=== PATIENT | male | born 1955 | race Caucasian/White ===

== ENCOUNTER → 2016-05-03 | Outpatient (REF) | payer MEDICARE ==
[~2016-05-03] MED LIST: ACID1CAP PO; ASPI1TAB PO; ATOR1TAB21 PO; COLA100C PO; DILT180C PO; DOXY100T PO; INSULANT SC; INVO300T PO; LISI2.5T3 PO; METO25TAB PO; NICO21PAT TD; PERCOCET PO; ZYVO100T PO
== END ==
LOC: M LAB REF 13:03
PROVIDERS: ATTEND Podiatrist
DX: E11.51 Type 2 diabetes mellitus with diabetic peripheral angiopathy without gangrene (principal); E11.42 Type 2 diabetes mellitus with diabetic polyneuropathy; L97.512 Non-pressure chronic ulcer of other part of right foot with fat layer exposed; L97.522 Non-pressure chronic ulcer of other part of left foot with fat layer exposed

== ENCOUNTER → 2016-09-05 | Day surgery (SDC) | payer MEDICARE ==
[~2016-09-05] VITALS: Ht 175.3 cm; Wt 102.1 kg
[~2016-09-05] MED LIST changes: +BACITRACIN PWD 50,000 UNITS VIAL As Ordered ONE; +BUPIVACAINE HCL 0.5% 30 ML VIAL As Ordered ONE; -COLA100C PO; +COLA100C3 PO; +LIDOCAINE 2% INJ 100 MG/5 ML SDV (FOR ANES.) As Ordered ONE; +LIDOCAINE 2% MDV 20 ML VIAL As Ordered ONE; +LR 1,000 ML IV SCH; +METO25TA74 PO; +MIDAZOLAM INJ 2 MG/2 ML VIAL (J2250) As Ordered ONE; +NEOSPORIN GU IRRIG 20 ML VIAL As Ordered ONE; +ONDANSETRON 4MG/2ML VIAL (J2405) As Ordered ONE; +PHENYLephrine HCL 500 MCG/5 ML (100MCG/ML) SYRINGE (J2370) As Ordered ONE; +PROPOFOL 500 MG/50 ML VIAL As Ordered ONE; +REGR0.01 TOP; +SILV-4 TOP; +dexameTHASONE 4 MG/ML 1ML VIAL (J1100) As Ordered ONE; +ePHEDrine SULFATE 25 MG/5 ML(5MG/ML) SYRINGE As Ordered ONE; +fentaNYL 100 MCG/2 ML INJECTION (J3010) As Ordered ONE
[2016-09-05 12:40] VITALS: BP 143/82
--- NOTE | 2016-09-05 14:07 | REP ---
REASON: Postop. PRIORS: None. There has been surgical resection of the 1st digit and distal aspect of the 1st metatarsal seen on the previous exam of 08/04/2015 status quo. There is K-wire fixation of the 2nd digit into the 2nd metatarsal with surgical resection of the head of the 2nd metatarsal. There is associated soft tissue swelling. Signed by Jacob Bernal DO 09/05/2016 03:34 P
--- NOTE | 2016-09-06 11:13 | RO ---
DATE OF PROCEDURE: 09/05/2016 PREPROCEDURE DIAGNOSES: Rigid hammertoe deformity 2nd toe right foot. Dislocated 2nd metatarsophalangeal joint, right foot. Ulceration submetatarsal to right foot. POSTPROCEDURE DIAGNOSES: Rigid hammertoe deformity 2nd toe right foot. Dislocated 2nd metatarsophalangeal joint, right foot. Ulceration submetatarsal to right foot. PROCEDURE: 1. Proximal interphalangeal joint fusion, 2nd toe with external wire fixation. 2. Partial 2nd metatarsal head resection, right foot. SURGEON: Dr. Edward Thomas. HOSPITAL CHIEF EXECUTIVE OFFICER: None. ANESTHESIA: Local monitored anesthesia care (MAC) HEMOSTASIS: Ankle pneumatic tourniquet at 250 mmHg for 32 minutes. HARDWARE UTILIZED: 0.062 K-wire. DESCRIPTION OF PROCEDURE: On 09/05/2016 this 60-year-old white male was taken from his hospital room to the operating room and placed on the operating table in the supine position. Following the induction of IV sedation, local and regional anesthesia, the right lower extremity was prepped and draped in the usual aseptic manner. The ulcer on the planar surface was isolated from the foot with Tegaderm and attention was directed to the dorsal surface of the second toe where an incision was made over the proximal interphalangeal joint. The incision was carried down to the level of the extensor tendon where a Z-plasty tendon lengthening was performed. Medial and lateral collateral ligaments were then sharply dissected free from the end of the proximal phalanx and utilizing a power saw an osteotomy was performed to the level of the anatomical neck of the proximal phalanx from dorsal to planar, medial to lateral through and through. This was extirpated from the wound. Cartilage on the base of the middle phalanx was then osteotomized from dorsal to planar and extubated from the wound. The wound was flushed with copious amounts of dilute bacitracin, neomycin and polymyxin B solution. Utilizing a metatarsal elevator, the 2nd metatarsal first has it soft tissue contractors released and then the following procedure was performed. 2ND METATARSAL HEAD RESECTION, RIGHT FOOT: The head of the metatarsal was visualized and an osteotomy was performed just proximal to the articular cartilage from dorsal to planar through and through. This was extirpated from the wound. The wound was flushed with copious amounts of dilute bacitracin, neomycin and polymyxin B solution. A K-wire was then driven through the middle and distal phalanxes and then retrograded to the proximal phalanx and into the 2nd metatarsal. The wire was then bent and a protective cap was placed on the end of the K-wire. The wound was again flushed with copious amounts of dilute bacitracin, neomycin and polymyxin B solution and attention was directed towards closure where the extensor tendon was coapted and maintained with #4-0 Monocryl on a simple interrupted type fashion. Subcutaneous tissues were coapted and maintained with #4-0 Prolene in a simple interrupted type fashion. Skin incision was coapted and maintained #4-0 nylon in a simple interrupted and horizontal type fashion. Attention was directed towards bandaging where a sterile compressive bandage applied consisting of Adaptic, 4 x 4s, 4 x 4 fluffs plus Itz, Kerlix and Coban. The ankle pneumatic tourniquet was rapidly deflated and instantaneous capillary filling time was noted through digits 1-5 of the patient's right foot. The patient, having apparently tolerated the procedure well, was taken from the operating room to the recovery room, vital signs stable, and the patient afebrile for further monitoring by the anesthesia department. All surgical specimens removed during the operative procedure were sent to pathology for gross and microscopic examination. Postoperative instructions will be given upon discharge.
== END | disposition home or self-care (01) ==
LOC: M SDC 08:29
PROVIDERS: ATTEND Podiatrist
DX: M20.41 Other hammer toe(s) (acquired), right foot (principal); S93.124A Dislocation of metatarsophalangeal joint of right lesser toe(s), initial encounter; M79.671 Pain in right foot; M86.171 Other acute osteomyelitis, right ankle and foot; E11.51 Type 2 diabetes mellitus with diabetic peripheral angiopathy without gangrene; E11.42 Type 2 diabetes mellitus with diabetic polyneuropathy; Z79.4 Long term (current) use of insulin; I10 Essential (primary) hypertension; F32.9 Major depressive disorder, single episode, unspecified; Z79.899 Other long term (current) drug therapy; J44.9 Chronic obstructive pulmonary disease, unspecified; F17.210 Nicotine dependence, cigarettes, uncomplicated
CPT/HCPCS: 28285; 28308; 73630; 88300; J0690; J2250; J2370; J2405; J3010

== ENCOUNTER → 2016-11-28 | Outpatient (REF) | payer MEDICARE ==
[~2016-11-28] MED LIST changes: -BACITRACIN PWD 50,000 UNITS VIAL As Ordered ONE; +BECA1GEL TOP; -BUPIVACAINE HCL 0.5% 30 ML VIAL As Ordered ONE; -COLA100C3 PO; +COLA100C5 PO; -LIDOCAINE 2% INJ 100 MG/5 ML SDV (FOR ANES.) As Ordered ONE; -LIDOCAINE 2% MDV 20 ML VIAL As Ordered ONE; -LR 1,000 ML IV SCH; +METO1TAB32 PO; -METO25TA74 PO; -MIDAZOLAM INJ 2 MG/2 ML VIAL (J2250) As Ordered ONE; -NEOSPORIN GU IRRIG 20 ML VIAL As Ordered ONE; -ONDANSETRON 4MG/2ML VIAL (J2405) As Ordered ONE; -PHENYLephrine HCL 500 MCG/5 ML (100MCG/ML) SYRINGE (J2370) As Ordered ONE; -PROPOFOL 500 MG/50 ML VIAL As Ordered ONE; -REGR0.01 TOP; -dexameTHASONE 4 MG/ML 1ML VIAL (J1100) As Ordered ONE; -ePHEDrine SULFATE 25 MG/5 ML(5MG/ML) SYRINGE As Ordered ONE; -fentaNYL 100 MCG/2 ML INJECTION (J3010) As Ordered ONE
== END ==
LOC: M LAB REF 14:30
PROVIDERS: ATTEND Podiatrist
DX: L97.512 Non-pressure chronic ulcer of other part of right foot with fat layer exposed (principal)

== ENCOUNTER → 2017-05-08 | Outpatient (REF) | payer MEDICARE, MEDICAID | LOC: M LAB REF 17:03 | DX: L97.522 Non-pressure chronic ulcer of other part of left foot with fat layer exposed (principal) | CPT/HCPCS: 87186 ==

== ENCOUNTER 2017-07-25 08:02 | Day surgery (SDC) | payer MEDICARE ==
[~2017-07-25 08:02] MED LIST changes: -ACID1CAP PO; -ASPI1TAB PO; -ATOR1TAB21 PO; -BECA1GEL TOP; -COLA100C5 PO; -DILT180C PO; -DOXY100T PO; -INSULANT SC; -INVO300T PO; -LISI2.5T3 PO; -METO1TAB32 PO; -METO25TAB PO; -NICO21PAT TD; +OFLOXACIN 0.3 % (OCUFLOX) OPTH SOL 5ML OS; -PERCOCET PO; +PHENYLEPHRINE 2.5% OPHTH SOL 2ML OS; -SILV-4 TOP; -ZYVO100T PO
[2017-07-25] MEDS: PROPARACAINE 0.5% OPHTH SOL 15ML OS ×2 (09:17)
[2017-07-25] MEDS: TROPICAMIDE 1% OPHTH SOLN 2ML OS ×2 (09:17)
[2017-07-25 09:27] LABS: BEDSIDE GLUCOSE 123 MG/DL (80-115)
[2017-07-25] MEDS ORDERED: fentaNYL 100 MCG/2 ML INJECTION (J3010) As Ordered ×2 (09:55)
[2017-07-25] MEDS ORDERED: MIDAZOLAM INJ 2 MG/2 ML VIAL (J2250) As Ordered ×2 (09:55)
[2017-07-25] MEDS: POVIDONE-IODINE 5% OPHTH PREP SOL 30ML As Ordered ×2 (10:01)
[2017-07-25] MEDS: DUOVISC (0.50ML VISCOAT/0.55ML PROVISC) OPHTH KIT As Ordered ×4 (10:01→10:02)
[2017-07-25] MEDS: LIDOCAINE 0.75%/EPINEPHRINE 0.025% IN BSS 1ML SYR INTRACAMERAL (OR ONLY) As Ordered (10:02)
[2017-07-25] MEDS: BALANCED SALT IRRIGATION SOLUTION 500ML BAG (FOR OR EYE MACHINE) As Ordered ×2 (10:02)
[2017-07-25] MEDS: CEFUROXIME 1MG/0.1ML INTRACAMERAL INJ As Ordered ×2 (10:02)
== END 2017-07-25 11:00 | disposition home or self-care (01) ==
LOC: M SDC 08:02
DX: H25.12 Age-related nuclear cataract, left eye (principal); I25.10 Atherosclerotic heart disease of native coronary artery without angina pectoris; E78.5 Hyperlipidemia, unspecified; I10 Essential (primary) hypertension; J44.9 Chronic obstructive pulmonary disease, unspecified; E11.9 Type 2 diabetes mellitus without complications; F32.9 Major depressive disorder, single episode, unspecified; Z95.1 Presence of aortocoronary bypass graft; Z95.0 Presence of cardiac pacemaker; Z79.82 Long term (current) use of aspirin; Z79.4 Long term (current) use of insulin; Z79.899 Other long term (current) drug therapy
CPT/HCPCS: 66984

== ENCOUNTER 2017-11-14 08:45 | Day surgery (SDC) | payer MEDICARE ==
[2017-11-14 09:53] LABS: BEDSIDE GLUCOSE 114 MG/DL (80-115)
[2017-11-14] MEDS: PROPARACAINE 0.5% OPHTH SOL 15ML OD (10:00)
[2017-11-14] MEDS: PHENYLEPHRINE 2.5% OPHTH SOL 2ML OD (10:01)
[2017-11-14] MEDS: TROPICAMIDE 1% OPHTH SOLN 2ML OD (10:01)
[2017-11-14] MEDS: OFLOXACIN 0.3 % (OCUFLOX) OPTH SOL 5ML OD (10:01)
[2017-11-14] MEDS ORDERED: MIDAZOLAM INJ 2 MG/2 ML VIAL (J2250) As Ordered (10:26)
[2017-11-14] MEDS ORDERED: ONDANSETRON 4MG/2ML VIAL (J2405) As Ordered (10:27)
[2017-11-14] MEDS ORDERED: fentaNYL 100 MCG/2 ML INJECTION (J3010) As Ordered (10:27)
[2017-11-14] MEDS: BALANCED SALT IRRIGATION SOLUTION 500ML BAG (FOR OR EYE MACHINE) As Ordered (11:19)
[2017-11-14] MEDS: POVIDONE-IODINE 5% OPHTH PREP SOL 30ML As Ordered (11:19)
[2017-11-14] MEDS: CEFUROXIME 1MG/0.1ML INTRACAMERAL INJ As Ordered ×2 (11:20)
[2017-11-14] MEDS: LIDOCAINE 0.75%/EPINEPHRINE 0.025% IN BSS 1ML SYR INTRACAMERAL (OR ONLY) As Ordered (11:20)
[2017-11-14] MEDS: DUOVISC (0.50ML VISCOAT/0.55ML PROVISC) OPHTH KIT As Ordered (11:20)
== END 2017-11-14 12:15 | disposition home or self-care (01) ==
LOC: M SDC 08:45
DX: H25.11 Age-related nuclear cataract, right eye (principal); I25.10 Atherosclerotic heart disease of native coronary artery without angina pectoris; E11.9 Type 2 diabetes mellitus without complications; J44.9 Chronic obstructive pulmonary disease, unspecified; Z79.82 Long term (current) use of aspirin; Z79.899 Other long term (current) drug therapy; K44.9 Diaphragmatic hernia without obstruction or gangrene; K21.9 Gastro-esophageal reflux disease without esophagitis; F32.9 Major depressive disorder, single episode, unspecified; F17.210 Nicotine dependence, cigarettes, uncomplicated; Z79.4 Long term (current) use of insulin; Z95.0 Presence of cardiac pacemaker
CPT/HCPCS: 66984

== ENCOUNTER → 2018-02-27 | Outpatient (REF) | payer MEDICARE | LOC: M LAB REF 11:53 | DX: L03.031 Cellulitis of right toe (principal) | CPT/HCPCS: 87070 ==

== ENCOUNTER → 2018-03-25 | Outpatient (REF) | payer MEDICARE ==
[~2018-03-25] MED LIST changes: +ACID1CAP PO; +ASPI1TAB PO; +ATOR1TAB21 PO; +BECA1GEL TOP; +CART180C3 PO; +COLA100C5 PO; +DILT180C43 PO; +DOXY100T PO; +INSULANT SC; +INVO300T PO; +LISI2.5T5 PO; +METO1TAB32 PO; +METO25TAB PO; +NICO21PAT TD; -OFLOXACIN 0.3 % (OCUFLOX) OPTH SOL 5ML OS; +PERCOCET PO; -PHENYLEPHRINE 2.5% OPHTH SOL 2ML OS; +SILV-4 TOP; +ZYVO1TAB PO
== END ==
LOC: M LAB REF 17:57
PROVIDERS: ATTEND Podiatrist
DX: L97.522 Non-pressure chronic ulcer of other part of left foot with fat layer exposed (principal)

== ENCOUNTER → 2018-10-28 | Outpatient (CLI) | payer MEDICARE ==
[~2018-10-28] MED LIST changes: -ASPI1TAB PO; +ASPI81TA26 PO; +LISI-1046 PO; -LISI2.5T5 PO; +METO1TAB63 PO; -METO25TAB PO; +NICO21DI3 TD; -NICO21PAT TD
--- NOTE | 2018-10-28 10:12 | REP ---
Duplex extremity venous ultrasound: Lower extremity. History: Rule out DVT. Findings: The deep veins are anechoic and fully compressible from the groin to the popliteal fossa in the right lower extremity. Color flow imaging is homogeneous. Spectral Doppler interrogation demonstrates intact respiratory variation in flow and normal manual augmentation of flow. There is no evidence of deep vein thrombosis. There is an enlarged lymph node in the right groin measuring 2.0 x 3.9 x 1.1 cm. Impression: Negative right lower extremity duplex venous ultrasound. No evidence of deep vein thrombosis. There is a enlarged inguinal lymph node in the right groin. Electronically Signed by Danny Rivera MD 10/28/2018 10:04 A
== END ==
LOC: M RAD 09:14
PROVIDERS: ATTEND Podiatrist
DX: R59.0 Localized enlarged lymph nodes (principal)

== ENCOUNTER 2019-08-26 09:37 | Inpatient (IN) | payer MEDICARE ==
[~2019-08-26] VITALS: Ht 175.3 cm; Wt 114.6 kg
[~2019-08-26 09:37] MED LIST changes: -LISI-1046 PO; +LISI2.5T2 PO
[2019-08-26] MEDS ORDERED: GLUCAGON INJ 1MG VIAL SC PRN (09:45)
[2019-08-26] MEDS ORDERED: GLUCOSE 4GM CHEW TABLET PO PRN (09:45)
[2019-08-26] MEDS ORDERED: DEXTROSE 50% 50 ML SYRINGE IV PRN (09:45)
[2019-08-26] MEDS ORDERED: ACETAMINOPHEN TAB 650MG DOSE (2X325MG) PO PRN (09:45)
[2019-08-26 10:00] VITALS: BP 152/70
[2019-08-26] MEDS ORDERED: ROSU20TA5 PO (10:27)
[2019-08-26] MEDS ORDERED: POTA10TA67 PO (10:27)
[2019-08-26] MEDS ORDERED: CLOP75TA2 PO (10:27)
[2019-08-26] MEDS ORDERED: ACET500T15 PO (10:27)
[2019-08-26] MEDS ORDERED: SILV50CR TOP (10:27)
[2019-08-26] MEDS ORDERED: NITR4TASL SL (10:27)
[2019-08-26] MEDS ORDERED: FURO80TA2 PO (10:27)
[2019-08-26 11:17] LABS: HEMATOCRIT 37.1 % (42.0-52.0); HEMOGLOBIN 12.2 g/dl (13.5-17.5); MEAN CORPUSCULAR HEMOGLOBIN 28.4 pg (27.0-33.0); MEAN CORPUSCULAR HGB CONC 32.9 g/dl (32.0-36.5); MEAN CORPUSCULAR VOLUME 86.5 fl (80.0-96.0); PLATELET COUNT, AUTOMATED 290 10^3/uL (150-450); RED BLOOD COUNT 4.29 10^6/uL (4.30-6.10); WHITE BLOOD COUNT 18.4 10^3/uL (4.0-10.0)
[2019-08-26 11:43] LABS: ALBUMIN 2.1 GM/DL (3.2-5.2); BILIRUBIN,TOTAL 0.6 MG/DL (0.2-1.0); CALCIUM LEVEL 7.8 MG/DL (8.8-10.2); CREATININE FOR GFR 1.51 MG/DL (0.70-1.30); GLOMERULAR FILTRATION RATE 50.1 (>49); TOTAL PROTEIN 5.7 GM/DL (6.4-8.2)
[2019-08-26] MEDS: HumaLOG INSULIN (NovoLOG) PER UNIT SC SCH ×3 (11:51→21:00)
[2019-08-26] MEDS: ENOXAPARIN 40MG/0.4ML SYRINGE (J1650 PER 10MG) SC SCH (12:57)
[2019-08-26 14:00] VITALS: BP 151/72
[2019-08-26] MEDS ORDERED: VANCOMYCIN HCL 1,000 MG, VIAL MATE ADAPTER 1 EACH in D5W 250 ML IV ONE ×2 (15:00→16:00)
[2019-08-26] MEDS ORDERED: VANCOMYCIN HCL 1,000 MG, VIAL MATE ADAPTER 1 EACH in D5W 250 ML IV SCH ×6 (15:00)
[2019-08-26] MEDS ORDERED: ACETAMINOPHEN 500 MG TAB PO PRN (17:45)
[2019-08-26] MEDS ORDERED: NITROGLYCERIN 0.4 MG SUBL TABLET SL PRN (17:45)
--- NOTE | 2019-08-26 17:53 | HPEPDOC ---
[facility] Medical History & Physical Date of Admission Aug 26, 2019 Date of Service: Aug 26, 2019 Attending Physician: JACOBY ODONNELL MD History and Physical CHIEF COMPLAINT: Worsening L 5th metatarsal gangrenous wound HISTORY OF PRESENT ILLNESS: 63-year-old M patient with underlying medical history of diabetes, coronary artery disease, dyslipidemia, hypertension who has a history of tachybrady syndrome with pacemaker and chronic diabetic foot ulcer who was sent over from Dr. Thomas's office for a worsening infected left 5th metatarsal gangrenous wound, while reporting a recent fever at home to 101.2 yesterday. He reports that he presented to Dr. Thomas's office for care of the wound, where his previously much smaller wound was found to have significant purulent drainage and grown in size and was saturating the dressing and foul smelling. Subsequently, the patient was sent in for surgery to be done this afternoon. The patient currently denies any chills, chest pain, pressure or discomfort, nausea or vomiting. He reports that the fever he had yesterday is the only one he recalls and has not had repeated fevers since taking acetaminophen yesterday. PAST MEDICAL HISTORY: Diabetes. Heart disease. Dyslipidemia. Hypertension. Prior history of diabetic foot ulcers c/b osteomyelitis PAST SURGICAL HISTORY: Pacemaker insertion. Cardiac stent. Facial bone reconstruction. R diabetic foot ulcer surgeries SOCIAL HISTORY: The patient smokes one to two packs per day since age 14. Rare alcohol consumption No illicit drugs ALLERGIES: No known medication allergies. REVIEW OF SYSTEMS: Ten-point review of systems is negative, except for those mentioned in the history of the present illness. PHYSICAL EXAMINATION: VITAL SIGNS: HDS, afebrile, see below for details GENERAL: Patient alert and oriented times three, in no acute distress. HEENT: Normocephalic, atraumatic. PULMONARY: Bilaterally clear to auscultation. CARDIAC: Regular rate and rhythm. Normal S1, S2. ABDOMEN: Obese, soft, nontender, nondistended. Normoactive sounds EXTREMITIES: Diminished sensation bilateral lower extremities. L foot in soaked dressing with brownish purulent material draining, malodorous. No edema LABORATORY: ordering now. Was a direct admit ASSESSMENT AND PLAN: 63-year-old M with an underlying medical history of diabetes, coronary artery disease, dyslipidemia, hypertension being admitted surgical management and antibiotics for an extensively worsening L 5th metatarsal gangrenous diabetic wound. Plan: 1. L 5th metatarsal gangrenous diabetic wound. -Podiatry consulted; Dr. Thomas is planning to take the patient to the operating room this afternoon. -Placed on empiric vancomycin - Followup cultures. Final antibiotic regimen depends on cultures 2. Coronary artery disease, hypertension. -Continue aspirin, statin, plavix -smoke cessation counseling. -Will continue to monitor. 3. Tachybrady syndrome. The patient has a pacemaker. -Continue Cardizem. Will monitor. 4. Diabetes with diabetic neuropathy and diabetic foot ulcer. -Continue long acting insulin -SSI -hypoglycemia protocol -FSBG AC/HS -consistent carb diet after surgery, currently NPO 5. Dyslipidemia. Continue statin. 6. Deep vein thrombosis (DVT) prophylaxis: lovenox DISPOSITION PLANNING: Pending OR and clinical improvement. Medsurg. PT/OT Vital Signs Vital Signs Date Time Temp Pulse Resp B/P (MAP) Pulse Ox O2 Delivery O2 Flow Rate FiO2 08/26/19 14:00 98.7 80 17 151/72 (98) 98 Room Air Laboratory Data Labs 24H Laboratory Tests 2 08/26/19 10:28: Nucleated Red Blood Cells % (auto) 0.0, Anion Gap 7L, Glomerular Filtration Rate 50.1, Calcium Level 7.8L, Total Bilirubin 0.6, Aspartate Amino Transf (AST/SGOT) 48H, Alanine Aminotransferase (ALT/SGPT) 75, Alkaline Phosphatase 109, Total Protein 5.7L, Albumin 2.1L, Albumin/Globulin Ratio 0.6 08/26/19 11:00: Coronavirus (COVID-19)(PCR) NEGATIVE, Methicillin-Resist S.aureus DNA PCR NOT DETECTED 08/26/19 11:36: Bedside Glucose (Misc Panel) 157H 08/26/19 16:39: Bedside Glucose (Misc Panel) 133H CBC/BMP Laboratory Tests 08/26/19 10:28 Microbiology Microbiology 08/26/19 Blood Culture, Received Pending 08/26/19 Blood Culture, Received Pending Home Medications Scheduled Clopidogrel Bisulfate (Clopidogrel) 75 Mg Tablet, 75 MG PO QHS Diltiazem HCl (Cartia Xt) 180 Mg Cap, 180 MG PO QHS Furosemide (Furosemide) 80 Mg Tablet, 80 MG PO BID Insulin Glargine (Lantus) 1 Units/0.01 Ml Susp, 40 UNITS SC BID Lisinopril (Lisinopril) 2.5 Mg Tab, 2.5 MG PO QHS Potassium Chloride (Potassium Chloride) 10 Meq Tab.er.prt, 10 MEQ PO BID Rosuvastatin Calcium (Rosuvastatin Calcium) 20 Mg Tablet, 20 MG PO QHS Silver Sulfadiazine (Ssd) 50 Gm Cream..g., 1 APLCT TOP QHS APPLY TO RIGHT LEG Scheduled PRN Acetaminophen (Acetaminophen) 500 Mg Tablet, 1,000 MG PO Q6H PRN for PAIN / FEVER Nitroglycerin (Nitrostat) 0.4 Mg Tab.subl, 0.4 MG SL Q5MP PRN for CHEST PAIN Allergies Coded Allergies: No Known Allergies (Unverified , 11/14/17) A-FIB/CHADSVASC A-FIB History Current/History of A-Fib/PAF?: No Current PO Anticoag Therapy: No Age/Risk Factor Scoring CHADSVASC: CHADSVASC Response (Comments) Value Age Risk Factor Age < 65 years old 0 Gender Risk Factor Male 0 Hx of CHF Yes 1 Hx of HTN Yes 1 Hx of Stroke/TIA/or VTE No 0 Hx of Diabetes Yes 1 Hx of Vascular Disease Yes 1 Total 4 Treatment Treatment ordered: NONE Reason Anticoagulant not given: Not indicated/[id number] JACOBY ODONNELL MD Aug 26, 2019 17:53
[2019-08-26] MEDS ORDERED: LIDOCAINE PRES-FREE 2% 10ML AMP As Ordered ONE (18:11)
[2019-08-26] MEDS ORDERED: BUPIVACAINE HCL 0.5% 10ML VIAL As Ordered ONE ×3 (18:11→19:11)
[2019-08-26] MEDS ORDERED: dexameTHASONE 4 MG/ML 1ML VIAL (J1100 PER 1MG) As Ordered ONE (18:11)
[2019-08-26] MEDS ORDERED: ROPIvacaine 0.5% 30ML INJECTION (J2795 PER 1MG) As Ordered ONE (18:11)
[2019-08-26] MEDS ORDERED: NEOSPORIN GU IRRIG 20 ML VIAL As Ordered ONE (18:12)
[2019-08-26] MEDS ORDERED: BACITRACIN PWD 50,000 UNITS VIAL As Ordered ONE (18:12)
--- NOTE | 2019-08-26 18:55 | ECGEPIP ---
[facility] Test Date: 2019-08-26 Pat Name: JORGE ORO Department: Room: [place] [address] Gender: Male Intermission Coordinator: VALENTINE : 1955 Requested By: Colby Greene Order Number: [id number] Reading MD: David Ledesma Measurements Intervals [place] Rate: 92 P: 57 WI: 233 QRS: -73 QRSD: 169 T: 88 QT: 383 QTc: 476 Interpretive Statements Ventricular-paced rhythm Electronically Signed on 08-26-2019 18:55:23 EDT by David Ledesma
[2019-08-26] MEDS ORDERED: propofoL 200 MG/20 ML VIAL As Ordered ONE (19:07)
[2019-08-26] MEDS ORDERED: fentaNYL 100 MCG/2 ML INJECTION (J3010) As Ordered ONE (19:07)
[2019-08-26] MEDS ORDERED: MIDAZOLAM INJ 2MG/2ML VIAL (J2250 PER 1MG) As Ordered ONE (19:07)
[2019-08-26] MEDS ORDERED: VANCOMYCIN 1000MG/20ML VIAL As Ordered ONE (19:17)
[2019-08-26] MEDS ORDERED: PERCOCET 5MG/325MG TAB PO PRN ×2 (21:00)
[2019-08-26] MEDS: SILVER SULFADIAZINE 1% CR 50 GM JAR TOP SCH (21:00)
[2019-08-26 21:30] VITALS: BP 149/73
[2019-08-26 22:00] VITALS: BP 151/74
[2019-08-26 22:30] VITALS: BP 148/74
[2019-08-26] MEDS: POTASSIUM CHLORIDE 10 MEQ SR TABLET PO SCH (23:14)
[2019-08-26] MEDS: LISINOPRIL *2.5 MG* TAB PO SCH (23:15)
[2019-08-26] MEDS: FUROSEMIDE 80 MG TAB PO SCH (23:15)
[2019-08-26] MEDS: CLOPIDOGREL 75 MG TAB PO SCH (23:16)
[2019-08-26] MEDS: diltiaZEM **CD** 180 MG CAP PO SCH (23:16)
[2019-08-26] MEDS: ROSUVASTATIN 10 MG TAB (CRESTOR) PO SCH (23:18)
[2019-08-26] MEDS: LEVEMIR (INSULIN DETEMIR) 1 UNITS/0.01ML SC SCH (23:19)
[2019-08-26 23:30] VITALS: BP 144/74
[2019-08-27] VITALS (7 sets, daily range): BP systolic 139–161; BP diastolic 69–81
[2019-08-27] MEDS ORDERED: VANCOMYCIN HCL 750 MG, VIAL MATE ADAPTER 1 EACH in D5W 250 ML IV SCH (05:00)
[2019-08-27] MEDS ORDERED: VANCOMYCIN HCL 500 MG in D5W MINI-BAG PLUS 100 ML IV SCH (06:00)
[2019-08-27 07:19] LABS: HEMATOCRIT 34.6 % (42.0-52.0); HEMOGLOBIN 11.3 g/dl (13.5-17.5); MEAN CORPUSCULAR HEMOGLOBIN 28.1 pg (27.0-33.0); MEAN CORPUSCULAR HGB CONC 32.7 g/dl (32.0-36.5); MEAN CORPUSCULAR VOLUME 86.1 fl (80.0-96.0); PLATELET COUNT, AUTOMATED 268 10^3/uL (150-450); RED BLOOD COUNT 4.02 10^6/uL (4.30-6.10); WHITE BLOOD COUNT 13.6 10^3/uL (4.0-10.0)
[2019-08-27 07:45] LABS: BLOOD UREA NITROGEN 33 MG/DL (7-18); CALCIUM LEVEL 7.4 MG/DL (8.8-10.2); CARBON DIOXIDE LEVEL 33 MEQ/L (21-32); CHLORIDE LEVEL 95 MEQ/L (98-107); CREATININE FOR GFR 1.25 MG/DL (0.70-1.30); GLOMERULAR FILTRATION RATE > 60.0 (>49); GLUCOSE, FASTING 310 MG/DL (70-100); POTASSIUM SERUM 3.9 MEQ/L (3.5-5.1); SODIUM LEVEL 134 MEQ/L (136-145)
--- NOTE | 2019-08-27 08:27 | REP ---
REASON: Postop evaluation. There has been surgical excision of the 5th digit with the surgical site at the proximal diaphysis of the 5th metatarsal. The surgical margin is smooth. There is a bandage overlying the site. Electronically Signed by Jacob Bernal DO 08/27/2019 10:51 A
[2019-08-27] MEDS: ENOXAPARIN 40MG/0.4ML SYRINGE (J1650 PER 10MG) SC SCH (08:29)
[2019-08-27] MEDS: HumaLOG INSULIN (NovoLOG) PER UNIT SC SCH ×4 (08:34→20:58)
[2019-08-27] MEDS: LEVEMIR (INSULIN DETEMIR) 1 UNITS/0.01ML SC SCH ×2 (08:34→22:02)
[2019-08-27] MEDS: POTASSIUM CHLORIDE 10 MEQ SR TABLET PO SCH ×2 (08:35→22:01)
[2019-08-27] MEDS: FUROSEMIDE 80 MG TAB PO SCH ×2 (08:35→17:17)
[2019-08-27] MEDS: GENTAMICIN SULFATE 0.1% OINT 15 GM TOP SCH ×3 (12:28→22:02)
[2019-08-27] MEDS: VANCOMYCIN HCL 1,000 MG, VIAL MATE ADAPTER 1 EACH in D5W 250 ML IV SCH ×2 (14:13→22:00)
--- NOTE | 2019-08-27 15:09 | IPNPDOC ---
Text Note Date of Service The patient was seen on 08/27/19. NOTE SUBJECTIVE: -Doing ok this morning, no complaints postop, pain appears to be well controlled PHYSICAL EXAMINATION: VITAL SIGNS: see belwo GENERAL: Patient alert and oriented times three, in no acute distress. HEENT: Normocephalic, atraumatic. PULMONARY: Bilaterally clear to auscultation. CARDIAC: Regular rate and rhythm. Normal S1, S2. ABDOMEN: Obese, soft, nontender, nondistended. Normoactive sounds EXTREMITIES: Diminished sensation bilateral lower extremities. L foot with dressing c/d/i. RLE also with dressing. No edema LABORATORY: WBC 13.6 hgb 11.3 platelets 268 na 134 K 3.9 cr 1.25 covid-19 negative MRSA negative ASSESSMENT AND PLAN: 63-year-old M with an underlying medical history of diabetes, coronary artery disease, dyslipidemia, hypertension being admitted surgical management and antibiotics for an extensively worsening L 5th metatarsal gangrenous diabetic ulcer now s/p debridement and amputation of L 5th ray, thus far cultures growing GPCs in pairs. Plan: 1. L 5th metatarsal gangrenous diabetic ulcer: -Podiatry onboard, Dr. Thomas debrided and amputated L fifth ray on 08/25 -continue empiric vancomycin -Follow up cultures, currently GPCs in pairs. Final antibiotic regimen depends on cultures 2. BREANA: likely prerenal, improving after hydration -monitor 3. Coronary artery disease recently had stents placed 2 weeks prior -Continue aspirin, statin, plavix -Will continue to monitor. 4. Tachybrady syndrome. The patient has a pacemaker. -Continue Cardizem. Will monitor. 5. Diabetes with diabetic neuropathy and diabetic foot ulcer. -Continue long acting insulin -SSI -hypoglycemia protocol -FSBG AC/HS -consistent carb diet 6. Dyslipidemia. Continue statin. 7. Deep vein thrombosis (DVT) prophylaxis: lovenox DISPOSITION PLANNING: Pending OR and clinical improvement. Medsurg. PT/OT VS,Fishbone, I+O VS, Fishbone, I+O Laboratory Tests 08/26/19 10:28 08/27/19 06:13 Vital Signs Date Time Temp Pulse Resp B/P (MAP) Pulse Ox O2 Delivery O2 Flow Rate FiO2 08/27/19 06:00 97.8 70 18 140/77 (98) 100 Nasal Cannula 2.0 I&O- Last 24 Hours up to 6 AM 08/27/19 05:59 Intake Total 1400 ml Output Total 20 ml Balance 1380 ml JACOBY ODONNELL MD Aug 27, 2019 09:28
--- NOTE | 2019-08-27 16:31 | IPN ---
DATE OF VISIT: 08/27/2019 CHIEF COMPLAINT: The patient is seen at bedside for evaluation status post fascia layer resection secondary to necrotizing fasciitis. The patient states his fever broke last night and he feels good today. Denied shortness of breath or chest pain. Bandages intact with no breakthrough bleeding. The patient's temperature this morning is 97.8, pulse 70, respiration 18, blood pressure is 140/77. His pulse oximetry is 100 with nasal cannula at 2 liters per minute. White count has decreased to 13.6. C-reactive protein is 10.6. Bandage was removed today with the packing removed. There is granulation tissue base forming at the surgical site. There was no purulence expressed with compression of the foot. Erythema noted dorsally on the foot has significantly resolved. The patient's gram stain and culture is presently pending. Orders written to clean the wound with Vashe, let stand for 10-15 minutes, then apply gentamicin cream and a dressing. The patient's antibiotics will be cultured according to his culture and sensitivity. He is presently on vancomycin.
[2019-08-27] MEDS: SILVER SULFADIAZINE 1% CR 50 GM JAR TOP SCH (21:00)
[2019-08-27] MEDS: ROSUVASTATIN 10 MG TAB (CRESTOR) PO SCH (22:01)
[2019-08-27] MEDS: LISINOPRIL *2.5 MG* TAB PO SCH (22:01)
[2019-08-27] MEDS: CLOPIDOGREL 75 MG TAB PO SCH (22:02)
[2019-08-27] MEDS: diltiaZEM **CD** 180 MG CAP PO SCH (22:04)
[2019-08-28 02:00] VITALS: BP 149/68
[2019-08-28 06:00] VITALS: BP 148/72
[2019-08-28 06:00] LABS: HEMATOCRIT 36.8 % (42.0-52.0); HEMOGLOBIN 12.5 g/dl (13.5-17.5); MEAN CORPUSCULAR HEMOGLOBIN 28.6 pg (27.0-33.0); MEAN CORPUSCULAR VOLUME 84.2 fl (80.0-96.0); PLATELET COUNT, AUTOMATED 284 10^3/uL (150-450); RED BLOOD COUNT 4.37 10^6/uL (4.30-6.10); WHITE BLOOD COUNT 11.4 10^3/uL (4.0-10.0)
[2019-08-28 06:12] LABS: BLOOD UREA NITROGEN 29 MG/DL (7-18); C REACTIVE PROTEIN QUANTITATIV 8.21 MG/DL (0.00-0.30); CALCIUM LEVEL 7.9 MG/DL (8.8-10.2); CARBON DIOXIDE LEVEL 34 MEQ/L (21-32); CHLORIDE LEVEL 99 MEQ/L (98-107); CREATININE FOR GFR 1.07 MG/DL (0.70-1.30); GLOMERULAR FILTRATION RATE > 60.0 (>49); GLUCOSE, FASTING 64 MG/DL (70-100); POTASSIUM SERUM 3.5 MEQ/L (3.5-5.1); SODIUM LEVEL 137 MEQ/L (136-145)
[2019-08-28] MEDS: VANCOMYCIN HCL 1,000 MG, VIAL MATE ADAPTER 1 EACH in D5W 250 ML IV SCH ×3 (06:48→21:33)
[2019-08-28] MEDS: HumaLOG INSULIN (NovoLOG) PER UNIT SC SCH ×4 (07:23→21:00)
[2019-08-28 10:00] VITALS: BP 142/74
[2019-08-28] MEDS: FUROSEMIDE 80 MG TAB PO SCH ×2 (10:19→17:45)
[2019-08-28] MEDS: ENOXAPARIN 40MG/0.4ML SYRINGE (J1650 PER 10MG) SC SCH (10:19)
[2019-08-28] MEDS: POTASSIUM CHLORIDE 10 MEQ SR TABLET PO SCH ×2 (10:19→21:35)
[2019-08-28] MEDS: GENTAMICIN SULFATE 0.1% OINT 15 GM TOP SCH (10:20)
[2019-08-28] MEDS: LEVEMIR (INSULIN DETEMIR) 1 UNITS/0.01ML SC SCH ×2 (10:21→21:33)
--- NOTE | 2019-08-28 10:44 | IPNPDOC ---
Text Note Date of Service The patient was seen on 08/28/19. NOTE SUBJECTIVE: -Doing ok this morning, no fevers over the past 24h -Pain is well controlled PHYSICAL EXAMINATION: VITAL SIGNS: see below. HDS, afebrile GENERAL: Patient alert and oriented times three, in no acute distress. HEENT: Normocephalic, atraumatic. PULMONARY: Bilaterally clear to auscultation. CARDIAC: Regular rate and rhythm. Normal S1, S2. ABDOMEN: Obese, soft, nontender, nondistended. Normoactive sounds EXTREMITIES: Diminished sensation bilateral lower extremities. L foot with dressing c/d/i. RLE also with dressing. No edema LABORATORY: WBC 11.4 hgb 12.5 platelets 284 K 3.5 cr 1.07 covid-19 negative MRSA negative ASSESSMENT AND PLAN: 63-year-old M with an underlying medical history of diabetes, coronary artery disease, dyslipidemia, hypertension being admitted surgical management and antibiotics for an extensively worsening L 5th metatarsal gangrenous diabetic ulcer now s/p debridement and amputation of L 5th ray, with pending would cultures on empiric vancomycin. Plan: 1. L 5th metatarsal gangrenous diabetic ulcer: -Podiatry onboard, Dr. Thomas debrided and amputated L fifth ray on 08/25 -continue empiric vancomycin -Follow up cultures, currently GPCs in pairs. Final antibiotic regimen depends on cultures 2. BREANA: likely prerenal, improving after hydration -monitor 3. Coronary artery disease recently had stents placed 2 weeks prior -Continue aspirin, statin, plavix -Will continue to monitor. 4. Tachybrady syndrome. The patient has a pacemaker. -Continue Cardizem. Will monitor. 5. Diabetes with diabetic neuropathy and diabetic foot ulcer. -Continue long acting insulin -SSI -hypoglycemia protocol -FSBG AC/HS -consistent carb diet 6. Dyslipidemia. Continue statin. 7. Deep vein thrombosis (DVT) prophylaxis: lovenox 8. Hypokalemia: on daily repletion -monitor DISPOSITION PLANNING: Pending clinical improvement. Medsurg. PT/OT VS,Fishbone, I+O VS, Fishbone, I+O Laboratory Tests 08/28/19 05:28 Vital Signs Date Time Temp Pulse Resp B/P (MAP) Pulse Ox O2 Delivery O2 Flow Rate FiO2 08/28/19 06:00 98.7 70 18 148/72 (97) 95 Room Air 08/27/19 18:00 2.0 I&O- Last 24 Hours up to 6 AM 08/28/19 05:59 Intake Total 2497 ml Output Total 2950 ml Balance -453 ml JACOBY ODONNELL MD Aug 28, 2019 07:56
--- NOTE | 2019-08-28 14:02 | PHACANCOPD ---
PHARMACY VANCOMYCIN DOSING Pt Demographics Demographics Patient Age:63 , Weight:120.400 , Gender: male Adjusted Body Weight Date: 08/28/19, Adjusted Body Weight: Kg Events Past 24 Hours Events Past 24 Hours: NO: Dialysis, Diuretic Therapy, Change in CrCl, Fever, Elevation in WBC, Pending Diagnostics, Pending Procedures, Other Vancomycin Vancomycin Load Y/N: Yes Load Dose Date Time Vancomycin Load Dose: Date: Time: Vancomycin Dose Date: 08/28/19. Current Vancomycin Dose: [1G IV Q8H] Intermittent Dosing?: No Labs Labs Item Value Date Time White Blood Count 18.4 10^3/uL H 08/26/19 1028 White Blood Count 13.6 10^3/uL H 08/27/19 0613 White Blood Count 11.4 10^3/uL H 08/28/19 0528 Creatinine 1.51 MG/DL H 08/26/19 1028 Creatinine 1.25 MG/DL 08/27/19 0613 Creatinine 1.07 MG/DL 08/28/19 0528 Random Vancomycin Level 12.8 UG/ML 08/27/19 1255 Vancomycin Level Trough 18.6 UG/ML 08/28/19 1303 Micro Microbiology 08/26/19 Blood Culture - Preliminary, Resulted No Growth after 48 hours. All Specime... 08/26/19 Blood Culture - Preliminary, Resulted No Growth after 48 hours. All Specime... 08/26/19 Gram Stain - Final, Resulted 08/26/19 Wound Culture, Resulted Pending 08/26/19 Anaerobic Culture, Resulted Pending Creatinine Clearance Date:08/28/19. Creatinine Clearance: [1.07ML/MIN]. Assessment and Plan Maintaining Current Dose?: Yes Reason for dose change: No Dose Change Pharmacist Note Pharmacist Note Date: 08/28/19. Pharmacist note: Pt trough returned from lab @18.6mcg/ml. We will continue 1g vancomycin iv every 8 hours. We will continue to monitor and adjust the dose as needed. BENNY NEVAREZ PHARMACY Aug 28, 2019 14:02
--- NOTE | 2019-08-28 16:36 | IPN ---
DATE OF VISIT: 08/28/2019 at 10:37 a.m. CHIEF COMPLAINT: The patient is seen at bedside for evaluation of wound on his left foot. The patient states he feels well. No shortness of breath or chest pain. He denies chills. The patient's vital signs 98.7, pulse 70, respiration 18, blood pressure is 148/72. Room air the patient's pulse oximetry is 95. Laboratory studies were reviewed. The patient's C-reactive protein has decreased to 8.21. His WBC is 11.4, decreased from 18.4 on admission. His mycobacteriology results reveals final gram stain of gram positive cocci in pairs. His aerobic and anaerobic cultures are pending. Evaluation of his wound reveals a wound down the lateral aspect of his left foot in the area of the 5th metatarsophalangeal joint measuring 6.7 cm from distal to proximal, 3.4 cm from dorsal to plantar, and 1 cm in depth. It is down to bone, muscle, and tendon. However, there is no active purulent discharge. Erythema on the dorsal aspect of the foot has been resolving. ASSESSMENT: Stage IV wound after debridement of necrotizing fasciitis. PLAN: The patient will be switched to a wound vacuum-assisted closure (VAC) today, white foam over the ulcer followed by a black foam to perform a dorsal bridge pressure negative 175 mmHg continuous setting high intensity. His questions are answered.
[2019-08-28] MEDS: SILVER SULFADIAZINE 1% CR 50 GM JAR TOP SCH (21:00)
[2019-08-28] MEDS: ROSUVASTATIN 10 MG TAB (CRESTOR) PO SCH (21:34)
[2019-08-28] MEDS: LISINOPRIL *2.5 MG* TAB PO SCH (21:34)
[2019-08-28] MEDS: CLOPIDOGREL 75 MG TAB PO SCH (21:35)
[2019-08-28] MEDS: diltiaZEM **CD** 180 MG CAP PO SCH (21:35)
[2019-08-28 22:00] VITALS: BP 186/81
[2019-08-29] MEDS: VANCOMYCIN HCL 1,000 MG, VIAL MATE ADAPTER 1 EACH in D5W 250 ML IV SCH ×3 (05:33→21:54)
[2019-08-29 06:00] VITALS: BP 162/80
[2019-08-29 06:44] LABS: HEMOGLOBIN 12.6 g/dl (13.5-17.5); MEAN CORPUSCULAR HEMOGLOBIN 28.4 pg (27.0-33.0); MEAN CORPUSCULAR HGB CONC 33.2 g/dl (32.0-36.5); MEAN CORPUSCULAR VOLUME 85.6 fl (80.0-96.0); PLATELET COUNT, AUTOMATED 315 10^3/uL (150-450); RED BLOOD COUNT 4.44 10^6/uL (4.30-6.10); WHITE BLOOD COUNT 10.9 10^3/uL (4.0-10.0)
[2019-08-29 07:04] LABS: BLOOD UREA NITROGEN 21 MG/DL (7-18); C REACTIVE PROTEIN QUANTITATIV 4.76 MG/DL (0.00-0.30); CALCIUM LEVEL 8.5 MG/DL (8.8-10.2); CARBON DIOXIDE LEVEL 36 MEQ/L (21-32); CHLORIDE LEVEL 96 MEQ/L (98-107); CREATININE FOR GFR 1.02 MG/DL (0.70-1.30); GLOMERULAR FILTRATION RATE > 60.0 (>49); GLUCOSE, FASTING 122 MG/DL (70-100); POTASSIUM SERUM 3.9 MEQ/L (3.5-5.1); SODIUM LEVEL 134 MEQ/L (136-145)
[2019-08-29] MEDS: FUROSEMIDE 80 MG TAB PO SCH ×2 (08:32→16:13)
[2019-08-29] MEDS: POTASSIUM CHLORIDE 10 MEQ SR TABLET PO SCH ×2 (08:32→21:53)
[2019-08-29] MEDS: LEVEMIR (INSULIN DETEMIR) 1 UNITS/0.01ML SC SCH ×2 (08:33→21:53)
[2019-08-29] MEDS: ENOXAPARIN 40MG/0.4ML SYRINGE (J1650 PER 10MG) SC SCH (08:33)
[2019-08-29] MEDS: HumaLOG INSULIN (NovoLOG) PER UNIT SC SCH ×4 (08:34→21:00)
[2019-08-29 14:00] VITALS: BP 160/78
--- NOTE | 2019-08-29 14:02 | IPNPDOC ---
Text Note Date of Service The patient was seen on 08/29/19. NOTE SUBJECTIVE: -Doing well this morning, no fevers over the past 24h -Pain is well controlled -Was switched to wound vac by Dr. Thomas yesterday PHYSICAL EXAMINATION: VITAL SIGNS: see below. HDS, afebrile GENERAL: Patient alert and oriented times three, in no acute distress. HEENT: Normocephalic, atraumatic. PULMONARY: Bilaterally clear to auscultation. CARDIAC: Regular rate and rhythm. Normal S1, S2. ABDOMEN: Obese, soft, nontender, nondistended. Normoactive sounds EXTREMITIES: Diminished sensation bilateral lower extremities. LABORATORY: reviewed. Stable Microbiology still pending for speciation and sensitivities ASSESSMENT AND PLAN: 63-year-old M with an underlying medical history of diabetes, coronary artery disease, dyslipidemia, hypertension being admitted surgical management and antibiotics for an extensively worsening L 5th metatarsal gangrenous diabetic ulcer now s/p debridement and amputation of L 5th ray, now on a wound vac, with pending would cultures on empiric vancomycin. Plan: 1. L 5th metatarsal gangrenous diabetic ulcer: -Podiatry onboard, Dr. Thomas debrided and amputated L fifth ray on 08/25, wound vac closure 08/27 -continue empiric vancomycin -Follow up cultures, currently GPCs in pairs. Final antibiotic regimen depends on cultures 2. BREANA: was prerenal, resolved after hydration -monitor 3. Coronary artery disease recently had stents placed 2 weeks prior -Continue aspirin, statin, plavix -Will continue to monitor. 4. Tachybrady syndrome. The patient has a pacemaker. -Continue Cardizem. Will monitor. 5. Diabetes with diabetic neuropathy and diabetic foot ulcer. -Continue long acting insulin -SSI -hypoglycemia protocol -FSBG AC/HS -consistent carb diet 6. Dyslipidemia. Continue statin. 7. Deep vein thrombosis (DVT) prophylaxis: lovenox 8. Hypokalemia: on daily repletion -monitor DISPOSITION PLANNING: Pending clinical improvement and culture results for tailored antibiotics. Medsurg. PT/OT VS,Fishbone, I+O VS, Fishbone, I+O Laboratory Tests 08/29/19 06:11 Vital Signs Date Time Temp Pulse Resp B/P (MAP) Pulse Ox O2 Delivery O2 Flow Rate FiO2 08/29/19 06:00 97.8 70 18 162/80 (107) 95 Room Air 08/27/19 18:00 2.0 I&O- Last 24 Hours up to 6 AM 08/29/19 06:00 Intake Total 2160 ml Output Total 2425 ml Balance -265 ml JACOBY ODONNELL MD Aug 29, 2019 07:26
[2019-08-29] MEDS: cefTRIAXone SOD 2 GM in D5W MINI-BAG PLUS 50 ML IV SCH (16:13)
[2019-08-29] MEDS: SILVER SULFADIAZINE 1% CR 50 GM JAR TOP SCH (21:00)
[2019-08-29] MEDS: ROSUVASTATIN 10 MG TAB (CRESTOR) PO SCH (21:51)
[2019-08-29] MEDS: diltiaZEM **CD** 180 MG CAP PO SCH (21:52)
[2019-08-29] MEDS: LISINOPRIL *2.5 MG* TAB PO SCH (21:52)
[2019-08-29] MEDS: CLOPIDOGREL 75 MG TAB PO SCH (21:53)
[2019-08-29 22:00] VITALS: BP 140/82
[2019-08-30 05:25] LABS: HEMOGLOBIN 12.9 g/dl (13.5-17.5); MEAN CORPUSCULAR HEMOGLOBIN 27.9 pg (27.0-33.0); MEAN CORPUSCULAR HGB CONC 33.1 g/dl (32.0-36.5); MEAN CORPUSCULAR VOLUME 84.4 fl (80.0-96.0); PLATELET COUNT, AUTOMATED 316 10^3/uL (150-450); RED BLOOD COUNT 4.62 10^6/uL (4.30-6.10); WHITE BLOOD COUNT 10.6 10^3/uL (4.0-10.0)
[2019-08-30 05:47] LABS: BLOOD UREA NITROGEN 24 MG/DL (7-18); C REACTIVE PROTEIN QUANTITATIV 3.32 MG/DL (0.00-0.30); CALCIUM LEVEL 8.3 MG/DL (8.8-10.2); CARBON DIOXIDE LEVEL 36 MEQ/L (21-32); CHLORIDE LEVEL 98 MEQ/L (98-107); CREATININE FOR GFR 1.11 MG/DL (0.70-1.30); GLOMERULAR FILTRATION RATE > 60.0 (>49); GLUCOSE, FASTING 87 MG/DL (70-100); SODIUM LEVEL 139 MEQ/L (136-145)
[2019-08-30 06:00] VITALS: BP 136/78
[2019-08-30] MEDS: VANCOMYCIN HCL 1,000 MG, VIAL MATE ADAPTER 1 EACH in D5W 250 ML IV SCH (06:21)
[2019-08-30 07:05] LABS: VANCOMYCIN LEVEL TROUGH 32.4 UG/ML (10.0-20.0)
[2019-08-30] MEDS: HumaLOG INSULIN (NovoLOG) PER UNIT SC SCH ×4 (07:16→21:00)
[2019-08-30] MEDS: FUROSEMIDE 80 MG TAB PO SCH ×2 (08:37→16:49)
[2019-08-30] MEDS: LEVEMIR (INSULIN DETEMIR) 1 UNITS/0.01ML SC SCH ×2 (08:38→22:52)
[2019-08-30] MEDS: ENOXAPARIN 40MG/0.4ML SYRINGE (J1650 PER 10MG) SC SCH (08:38)
[2019-08-30] MEDS: POTASSIUM CHLORIDE 10 MEQ SR TABLET PO SCH ×2 (08:38→22:49)
--- NOTE | 2019-08-30 11:54 | IPNPDOC ---
Text Note Date of Service The patient was seen on 08/30/19. NOTE SUBJECTIVE: -Doing well this morning, no fevers -Pain is well controlled PHYSICAL EXAMINATION: VITAL SIGNS: see below. HDS, afebrile GENERAL: Patient alert and oriented times three, in no acute distress. HEENT: Normocephalic, atraumatic. PULMONARY: Bilaterally clear to auscultation. CARDIAC: Regular rate and rhythm. Normal S1, S2. ABDOMEN: Obese, soft, nontender, nondistended. Normoactive sounds EXTREMITIES: Diminished sensation bilateral lower extremities. LLE bandaged, c/d/i with wound van in place, RLE with bandage c/d/i LABORATORY: reviewed. Stable Micro: Organism 1 KLEBSIELLA OXYTOCA QUANTITY OF GROWTH FEW Organism 2 STAPHYLOCOCCUS EPIDERMIDIS QUANTITY OF GROWTH FEW Organism 3 ENTEROCOCCUS FAECALIS QUANTITY OF GROWTH FEW Organism 4 CORYNEBACTERIUM SPECIES QUANTITY OF GROWTH FEW Many species of Coryneform bacteria are part of the normal roberto of the skin and mucous membranes in humans. Repeated isolation or a coryneform bacterium growing in pure culture may require consultation with an infectious disease specialist. There are currently no susceptibility standards for these organisms. ASSESSMENT AND PLAN: 63-year-old M with an underlying medical history of diabetes, coronary artery disease, dyslipidemia, hypertension being admitted surgical management and antibiotics for an extensively worsening L 5th metatarsal gangrenous diabetic ulcer now s/p debridement and amputation of L 5th ray, now on a wound vac, with pending would cultures on empiric vancomycin. Plan: 1. L 5th metatarsal nec fasc: s/p debridement with L fifth ray amputation on 08/25, with cultures growing mixed roberto of methicillin resistant staph epi, E. fecalis, Klebs and corynebac. -Podiatry onboard, Dr. Thomas debrided and amputated L fifth ray on 08/25, wound vac closure 08/27 -continue empiric vancomycin, ceftriaxone CFX was added on 08/28 after Klebs+ wound culture -will discuss PO abx, potentially linezolid/keflex with Dr. Burr on 08/30 AM and duration. 2. BREANA: was prerenal, resolved after hydration -monitor 3. Coronary artery disease recently had stents placed 2 weeks prior -Continue aspirin, statin, plavix -Will continue to monitor. 4. Tachybrady syndrome. The patient has a pacemaker. -Continue Cardizem. Will monitor. 5. Diabetes with diabetic neuropathy and diabetic foot ulcer. -Continue long acting insulin -SSI -hypoglycemia protocol -FSBG AC/HS -consistent carb diet 6. Dyslipidemia. Continue statin. 7. Deep vein thrombosis (DVT) prophylaxis: lovenox 8. Hypokalemia: on daily repletion -monitor DISPOSITION PLANNING: Medsurg, pending PO abx optimization for home discharge. VS,Fishbone, I+O VS, Fishbone, I+O Laboratory Tests 08/30/19 05:02 Vital Signs Date Time Temp Pulse Resp B/P (MAP) Pulse Ox O2 Delivery O2 Flow Rate FiO2 08/30/19 06:00 98.0 70 20 136/78 (97) 93 08/29/19 14:00 Room Air 08/27/19 18:00 2.0 I&O- Last 24 Hours up to 6 AM 08/30/19 05:59 Intake Total 1980 ml Output Total 2050 ml Balance -70 ml JACOBY ODONNELL MD Aug 30, 2019 09:13
[2019-08-30 14:00] VITALS: BP 160/62
[2019-08-30] MEDS: cefTRIAXone SOD 2 GM in D5W MINI-BAG PLUS 50 ML IV SCH (14:23)
[2019-08-30] MEDS: SILVER SULFADIAZINE 1% CR 50 GM JAR TOP SCH (21:00)
[2019-08-30 22:00] VITALS: BP 138/88
[2019-08-30] MEDS: ROSUVASTATIN 10 MG TAB (CRESTOR) PO SCH (22:49)
[2019-08-30] MEDS: CLOPIDOGREL 75 MG TAB PO SCH (22:49)
[2019-08-30] MEDS: diltiaZEM **CD** 180 MG CAP PO SCH (22:50)
[2019-08-30 22:51] VITALS: BP 138/88
[2019-08-30] MEDS: LISINOPRIL *2.5 MG* TAB PO SCH (22:51)
[2019-08-31 06:00] VITALS: BP 150/90
[2019-08-31 06:23] LABS: HEMATOCRIT 40.1 % (42.0-52.0); HEMOGLOBIN 13.2 g/dl (13.5-17.5); MEAN CORPUSCULAR HGB CONC 32.9 g/dl (32.0-36.5); MEAN CORPUSCULAR VOLUME 85.1 fl (80.0-96.0); PLATELET COUNT, AUTOMATED 327 10^3/uL (150-450); RED BLOOD COUNT 4.71 10^6/uL (4.30-6.10); WHITE BLOOD COUNT 10.6 10^3/uL (4.0-10.0)
[2019-08-31 06:45] LABS: BLOOD UREA NITROGEN 29 MG/DL (7-18); C REACTIVE PROTEIN QUANTITATIV 2.47 MG/DL (0.00-0.30); CALCIUM LEVEL 8.7 MG/DL (8.8-10.2); CARBON DIOXIDE LEVEL 34 MEQ/L (21-32); CHLORIDE LEVEL 97 MEQ/L (98-107); CREATININE FOR GFR 1.24 MG/DL (0.70-1.30); GLOMERULAR FILTRATION RATE > 60.0 (>49); GLUCOSE, FASTING 182 MG/DL (70-100); POTASSIUM SERUM 4.4 MEQ/L (3.5-5.1); SODIUM LEVEL 135 MEQ/L (136-145); VANCOMYCIN RANDOM 15.1 UG/ML
[2019-08-31] MEDS: HumaLOG INSULIN (NovoLOG) PER UNIT SC SCH ×2 (08:28→12:12)
[2019-08-31] MEDS: FUROSEMIDE 80 MG TAB PO SCH (08:28)
[2019-08-31] MEDS: ENOXAPARIN 40MG/0.4ML SYRINGE (J1650 PER 10MG) SC SCH (08:28)
[2019-08-31] MEDS: LEVEMIR (INSULIN DETEMIR) 1 UNITS/0.01ML SC SCH (08:28)
[2019-08-31] MEDS: POTASSIUM CHLORIDE 10 MEQ SR TABLET PO SCH (08:29)
[2019-08-31] MEDS ORDERED: VANCOMYCIN HCL 1,000 MG, VIAL MATE ADAPTER 1 EACH in D5W 250 ML IV SCH (09:00)
[2019-08-31] MEDS ORDERED: metroNIDAZOLE 500 MG in IV 1 EA IV SCH (11:00)
[2019-08-31] MEDS ORDERED: PERCOCET PO (11:53)
[2019-08-31] MEDS ORDERED: DOXY-350 PO (11:53)
[2019-08-31] MEDS ORDERED: LEVO750T13 PO (11:53)
[2019-08-31] MEDS ORDERED: LevoFLOXacin IV 750 MG in IV 1 EA IV SCH (12:00)
[2019-08-31 14:00] VITALS: BP 158/84
--- NOTE | 2019-08-31 16:18 | DS.PDOC ---
Discharge Summary General Date of Admission Aug 26, 2019 at 09:50 Date of Discharge 08/31/2019 Attending Physician: JACOBY ODONNELL MD Discharge Summary PROCEDURES PERFORMED DURING STAY: L lateral foot debridement and L 5th fifth ray amputation on 08/25 ADMITTING DIAGNOSES: 1. Left lateral diabetic foot wound DISCHARGE DIAGNOSES: Polymicrobial necrotizing fasciitis of the left lateral foot Insulin dependent diabetes mellitus CAD Dyslipidemia Hypertension Prior history of diabetic foot ulcers c/b osteomyelitis Tachybrady syndrome s/p PPM COMPLICATIONS/CHIEF COMPLAINT: Left Fifth Metatarsal Fracture. HISTORY OF PRESENT ILLNESS: 63-year-old M patient with underlying medical history of diabetes, coronary artery disease, dyslipidemia, hypertension who has a history of tachybrady syndrome with pacemaker and chronic diabetic foot ulcer who was sent over from Dr. Thomas's office for a worsening infected left 5th metatarsal gangrenous wound, while reporting a recent fever at home to 101.2. He reported that he presented to Dr. Thomas's office for care of the wound, where his previously much smaller wound was found to have significant purulent drainage and grown in size and was saturating the dressing and foul smelling. HOSPITAL COURSE: He was directly admitted to the hospital for debridement and Iv antibiotic therapy. He had evidence of L 5th metatarsal nec fasciitis noted during debridement with L fifth ray amputation on 08/[address] Thomas and wound cultures grew mixed roberto of methicillin resistant staph epi, E. fecalis, Klebs and corynebac. He was initially empirically covered with IV vancomycin to which ceftriaxone was added. He had a wound vac placed by Dr. Thomas and after discussion with Dr. Burr eventually recommended for 10 more day of antibiotics at discharge with doxy/levaquin after 5d of vanc/ceftriaxone. DISCHARGE MEDICATIONS: Please see below. ALLERGIES: Please see below. PHYSICAL EXAMINATION ON DISCHARGE: VITAL SIGNS: Please see below. GENERAL: Patient alert and oriented times three, in no acute distress. HEENT: Normocephalic, atraumatic. PULMONARY: Bilaterally clear to auscultation. CARDIAC: Regular rate and rhythm. Normal S1, S2. ABDOMEN: Obese, soft, nontender, nondistended. Normoactive sounds EXTREMITIES: Diminished sensation bilateral lower extremities. LLE bandaged, c/d/i with wound van in place, RLE with bandage c/d/i LABORATORY DATA: Please see below. IMAGING: L foot XR: There has been surgical excision of the 5th digit with the surgical site at the proximal diaphysis of the 5th metatarsal. The surgical margin is smooth. There is a bandage overlying the site. PROGNOSIS: Good ACTIVITY: As tolerated DIET: Consistent carb diet DISCHARGE PLAN: Home with wound vac and 10d of levaquin/doxy with podiatry, wound care clinic and PCP follow up. DISPOSITION: home with services DISCHARGE INSTRUCTIONS: 1. Home with wound vac and 10d of levaquin/doxy with podiatry, wound care clinic and PCP follow up. ITEMS TO FOLLOWUP ON ON OUTPATIENT: 1. L lateral wound necrotizing fasciitis and wound resolution DISCHARGE CONDITION: Stable TIME SPENT ON DISCHARGE: 46 minutes. Vital Signs/I&Os Vital Signs Date Time Temp Pulse Resp B/P (MAP) Pulse Ox O2 Delivery O2 Flow Rate FiO2 08/31/19 14:00 98.5 75 18 158/84 (108) 94 Room Air 08/27/19 18:00 2.0 I&O- Last 24 Hours up to 6 AM 08/31/19 06:00 Intake Total 1380 ml Output Total 2650 ml Balance -1270 ml Laboratory Data Labs 24H Laboratory Tests 2 08/30/19 16:39: Bedside Glucose (Misc Panel) 235H 08/30/19 20:56: Bedside Glucose (Misc Panel) 229H 08/31/19 05:36: Nucleated Red Blood Cells % (auto) 0.0, Anion Gap 4L, Glomerular Filtration Rate > 60.0, Calcium Level 8.7L, C-Reactive Protein, Quantitative 2.47H, Random Vancomycin Level 15.1 08/31/19 11:20: Bedside Glucose (Misc Panel) 349H CBC/BMP Laboratory Tests 08/31/19 05:36 FSBS Laboratory Tests Test 08/30/19 16:39 08/30/19 20:56 08/31/19 11:20 Range/Units Bedside Glucose (Misc Panel) 235 229 349 80-115 MG/DL Microbiology Microbiology 08/26/19 Blood Culture - Final, Complete NO GROWTH AFTER 5 DAYS 08/26/19 Blood Culture - Final, Complete NO GROWTH AFTER 5 DAYS 08/26/19 Gram Stain - Final, Resulted 08/26/19 Wound Culture - Final, Resulted Klebsiella Oxytoca Staphylococcus Epidermidis Enterococcus Faecalis Corynebacterium Species 08/26/19 Anaerobic Culture, Resulted Pending Discharge Medications Scheduled Clopidogrel Bisulfate (Clopidogrel) 75 Mg Tablet, 75 MG PO QHS, (Reported) Diltiazem HCl (Cartia Xt) 180 Mg Cap, 180 MG PO QHS, (Reported) Doxycycline Monohydrate (Doxycycline) 100 Mg Capsule, 1 CAP PO BID Furosemide (Furosemide) 80 Mg Tablet, 80 MG PO BID, (Reported) Insulin Glargine (Lantus) 1 Units/0.01 Ml Susp, 40 UNITS SC BID, (Reported) Levofloxacin (Levofloxacin) 750 Mg Tablet, 1 TAB PO DAILY Lisinopril (Lisinopril) 2.5 Mg Tab, 2.5 MG PO QHS, (Reported) Potassium Chloride (Potassium Chloride) 10 Meq Tab.er.prt, 10 MEQ PO BID, (Reported) Rosuvastatin Calcium (Rosuvastatin Calcium) 20 Mg Tablet, 20 MG PO QHS, (Reported) Silver Sulfadiazine (Ssd) 50 Gm Cream..g., 1 APLCT TOP QHS, (Reported) APPLY TO RIGHT LEG Scheduled PRN Acetaminophen (Acetaminophen) 500 Mg Tablet, 1,000 MG PO Q6H PRN for PAIN / FEVER, (Reported) Nitroglycerin (Nitrostat) 0.4 Mg Tab.subl, 0.4 MG SL Q5MP PRN for CHEST PAIN, (Reported) Oxycodone/Acetaminophen (Oxycodone-Acetaminophen 5-325) 1 Each Tablet, 1 TAB PO Q4HP PRN for MILD TO MODERATE PAIN Allergies Coded Allergies: No Known Allergies (Unverified , 11/14/17) JACOBY ODONNELL MD Aug 31, 2019 16:18
--- NOTE | 2019-08-31 16:22 | RO ---
DATE OF PROCEDURE: 08/26/2019 PREPROCEDURE DIAGNOSIS: Abscess/necrotizing fascitis 5th metatarsal region, left foot. POSTPROCEDURE DIAGNOSIS: Abscess/necrotizing fascitis 5th metatarsal region, left foot. PROCEDURE: 5th ray amputation left foot. SURGEON: Dr. Edward Thomas. CIVIL DRAFTING TECHNICIAN: None. ANESTHESIA: Local monitored anesthesia care (MAC). IRRIGATION: Dilute vancomycin solution 3 liters, low pressure pulsed lavage system. HEMOSTASIS: None. DRAINS: Half-inch iodoform gauze. ESTIMATED BLOOD LOSS: 20 mL. DESCRIPTION OF PROCEDURE: DESCRIPTION OF PROCEDURE: On 08/26/2019, this 63-year-old male was taken from his hospital room to the operating room and placed on the operating table in supine position. Following the induction of IV sedation and local regional anesthesia, the left lower extremity was prepped and draped in the usual aseptic manner. Attention was directed to the patient's left foot. There was noted to be a cyanotic 5th toe with a large ulcer formation on the planar aspect of the left foot with grayish purulent discharge. At this time, an incision was placed along the lateral shaft of the 5th metatarsal. The purulence went on the medial and lateral aspects of the 5th metatarsophalangeal joint. The muscle belly was noted to be necrotic. Utilizing a sterile scalpel, the muscle was debrided until viable bleeding muscle was identified. The 5th metatarsal head was noted to have some erosion and the 5th toe was completely engulfed with necrotizing fasciitis nonsalvageable. Therefore, the 5th toe was disarticulated with an incision placed along the webspace and an osteotomy was made on the shaft of the 5th metatarsal approximately mid shaft with care taken to take more bone from the inferior and lateral margins. The area was then removed. Good area of necrotic muscle was taken for aerobic and anaerobic culture. 3 liters of vancomycin was diluted through the wound with the low pressure pulsed lavage system. All bleeders as encountered were electrocoagulated. The wound was packed with half-inch iodoform gauze and a dry sterile dressing as applied consisting with Adaptic, 4 x 4s, ABDs and Kerlix. The patient, having apparently tolerated the surgical procedure well was taken from the operating room (OR) to the recovery room for further monitoring by the anesthesia department. The patient will stay on vancomycin until his culture becomes available. His questions were answered. Suspected organism due to either Staphylococcus or Streptococcus.
== END 2019-08-31 17:20 | disposition home health service (06) | DRG 616 ==
LOC: M MSPAV 09:50
PROVIDERS: ADMIT Internal Medicine; ATTEND Internal Medicine
PROC: 0Y6Y0Z0 Detachment at Left 5th Toe, Complete, Open Approach (ICD-10-PCS; principal; 2019-08-26 09:55)
DX: E11.621 Type 2 diabetes mellitus with foot ulcer (principal); M72.6 Necrotizing fasciitis; E11.52 Type 2 diabetes mellitus with diabetic peripheral angiopathy with gangrene; N17.9 Acute kidney failure, unspecified; I10 Essential (primary) hypertension; I25.10 Atherosclerotic heart disease of native coronary artery without angina pectoris; E78.5 Hyperlipidemia, unspecified; Z95.0 Presence of cardiac pacemaker; I49.5 Sick sinus syndrome; Z79.899 Other long term (current) drug therapy; L97.519 Non-pressure chronic ulcer of other part of right foot with unspecified severity; Z95.2 Presence of prosthetic heart valve; F17.200 Nicotine dependence, unspecified, uncomplicated

== ENCOUNTER 2019-11-15 18:23 | Emergency (ER) | payer MEDICARE ==
[~2019-11-15 18:23] MED LIST changes: +ACET500T15 PO; +CLOP75TA2 PO; +DOXY-350 PO; +FURO80TA2 PO; +LEVO750T13 PO; +NITR4TASL SL; +POTA10TA67 PO; +ROSU20TA5 PO; +SILV50CR TOP
[2019-11-15 20:00] VITALS: BP 170/83
== END 2019-11-15 20:26 | disposition home or self-care (01) ==
LOC: M ED 18:23 → EDBD 18:23 → M ED 20:26
DX: T87.81 Dehiscence of amputation stump (principal); W01.0XXA Fall on same level from slipping, tripping and stumbling without subsequent striking against object, initial encounter; Y92.9 Unspecified place or not applicable; Y93.9 Activity, unspecified; Y99.9 Unspecified external cause status; K21.9 Gastro-esophageal reflux disease without esophagitis; E11.9 Type 2 diabetes mellitus without complications; I10 Essential (primary) hypertension; Z87.891 Personal history of nicotine dependence; Z89.512 Acquired absence of left leg below knee; Z88.6 Allergy status to analgesic agent; Z79.899 Other long term (current) drug therapy

== ENCOUNTER 2019-11-19 17:26 | Emergency (ER) | payer MEDICARE ==
[~2019-11-19] VITALS: Ht 175.3 cm; Wt 109.1 kg
[2019-11-19] MEDS ORDERED: GABA-1171 PO (17:43)
[2019-11-19] MEDS ORDERED: TRAM50TA2 PO (17:43)
[2019-11-19] MEDS ORDERED: ASPI81TA86 PO (17:43)
[2019-11-19] MEDS ORDERED: CRES20TA2 PO (17:43)
[2019-11-19] MEDS ORDERED: METH1TAB40 PO (17:43)
[2019-11-19] MEDS ORDERED: FLOM0.4C39 PO (17:43)
[2019-11-19] MEDS ORDERED: HYDR-4279 PO (17:43)
[2019-11-19] MEDS ORDERED: BENZ200C70 (17:43)
[2019-11-19 18:58] LABS: BASO # 0.1 10^3/uL (0.0-0.2); BASO % 0.5 % (0.0-1.0); EOS # 0.1 10^3/uL (0.0-0.5); EOS % 0.8 % (0.0-3.0); HEMATOCRIT 32.7 % (42.0-52.0); HEMOGLOBIN 10.5 g/dl (13.5-17.5); LYMPH # 1.3 10^3/uL (1.5-5.0); LYMPH % 13.5 % (24.0-44.0); MEAN CORPUSCULAR HGB CONC 32.1 g/dl (32.0-36.5); MEAN CORPUSCULAR VOLUME 87.2 fl (80.0-96.0); MONO % 9.8 % (0.0-5.0); NEUTROPHILS # 7.4 10^3/uL (1.5-8.5); NEUTROPHILS % 74.9 % (36.0-66.0); PLATELET COUNT, AUTOMATED 186 10^3/uL (150-450); RED BLOOD COUNT 3.75 10^6/uL (4.30-6.10); WHITE BLOOD COUNT 9.9 10^3/uL (4.0-10.0)
[2019-11-19 19:09] LABS: INR 1.02; PROTHROMBIN TIME 13.6 SECONDS (11.8-14.0)
[2019-11-19 19:10] LABS: PARTIAL THROMBOPLASTIN TIME 26.1 SECONDS (25.0-38.4)
[2019-11-19 19:15] LABS: ALBUMIN 2.8 GM/DL (3.2-5.2); ALT/SGPT 31 U/L (12-78); BILIRUBIN,DIRECT 0.2 MG/DL (0.0-0.2); BILIRUBIN,TOTAL 0.7 MG/DL (0.2-1.0); BLOOD UREA NITROGEN 34 MG/DL (7-18); CALCIUM LEVEL 8.5 MG/DL (8.8-10.2); CARBON DIOXIDE LEVEL 29 MEQ/L (21-32); CHLORIDE LEVEL 101 MEQ/L (98-107); CREATININE FOR GFR 1.29 MG/DL (0.70-1.30); GLOMERULAR FILTRATION RATE > 60.0 (>49); GLUCOSE, FASTING 155 MG/DL (70-100); POTASSIUM SERUM 4.4 MEQ/L (3.5-5.1); SODIUM LEVEL 137 MEQ/L (136-145)
[2019-11-19 19:55] VITALS: BP 111/68
== END 2019-11-19 19:56 | disposition home or self-care (01) ==
LOC: M ED 17:26
DX: R04.0 Epistaxis (principal); I10 Essential (primary) hypertension; E78.5 Hyperlipidemia, unspecified; K21.9 Gastro-esophageal reflux disease without esophagitis; J44.9 Chronic obstructive pulmonary disease, unspecified; F17.210 Nicotine dependence, cigarettes, uncomplicated; Z88.6 Allergy status to analgesic agent; Z79.899 Other long term (current) drug therapy; Z79.82 Long term (current) use of aspirin

== ENCOUNTER → 2020-05-28 | Outpatient (CLI) | payer MEDICARE ==
[~2020-05-28] MED LIST changes: +AMLO1TAB24 PO; +ASPI81TA86 PO; +ATOR40TA75 PO; +BENZ200C70; +CRES20TA2 PO; +FLOM0.4C39 PO; +GABA-1171 PO; +HYDR-4279 PO; +METH-1164 PO; +TRAM50TA2 PO
== END ==
LOC: M LABSMTC 09:35
PROVIDERS: ATTEND Anesthesiology
DX: Z01.812 Encounter for preprocedural laboratory examination (principal); Z20.822 Contact with and (suspected) exposure to COVID-19

== ENCOUNTER 2020-06-01 13:00 | Day surgery (SDC) | payer MEDICARE ==
[~2020-06-01] VITALS: Ht 175.3 cm; Wt 100.7 kg
[~2020-06-01 13:00] MED LIST changes: +LR 1,000 ML IV ONE; +ceFAZolin SOD 2 GM in IV 1 EA IV ONE
[2020-06-01] MEDS ORDERED: ECOT81TA5 PO (13:54)
[2020-06-01] MEDS ORDERED: BACITRACIN OINTMENT 30GM TUBE As Ordered ONE (14:05)
[2020-06-01] MEDS ORDERED: LIDOCAINE 1% MDV 20ML VIAL As Ordered ONE (14:05)
[2020-06-01] MEDS ORDERED: propofoL 200 MG/20 ML VIAL As Ordered ONE (14:17)
[2020-06-01] MEDS ORDERED: LIDOCAINE 2% 100MG/5ML SDV (FOR ANES.) As Ordered ONE (14:17)
[2020-06-01] MEDS ORDERED: MIDAZOLAM INJ 2MG/2ML VIAL (J2250 PER 1MG) As Ordered ONE (14:17)
[2020-06-01] MEDS ORDERED: fentaNYL 100 MCG/2 ML INJECTION (J3010) As Ordered ONE (14:17)
[2020-06-01 17:05] VITALS: BP 160/86
--- NOTE | 2020-06-02 14:02 | RO ---
OPERATIVE NOTE DATE OF OPERATION: 06/01/2020 PREOPERATIVE DIAGNOSIS: Pacemaker battery depletion. POSTOPERATIVE DIAGNOSIS: Pacemaker battery depletion. FINDINGS: Pacemaker battery depletion. PROCEDURE PERFORMED: Explantation of old dual-chamber pacemaker pulse generator and implantation of a new dual-chamber pacemaker pulse generator. SURGEON: David Hoover M.D. CHEMICAL EDUCATOR: None. ANESTHESIA: Lidocaine 1% local/monitored anesthetic care. SPECIMENS: Old dual-chamber pacemaker pulse generator ([employer]). ESTIMATED BLOOD LOSS: Less than 5 mL. No blood products were placed. DRAINS: None. COMPLICATIONS: None. DESCRIPTION OF PROCEDURE: The patient was prepped and draped over the left heart region. 3M Ioban film was applied. Lidocaine 1% was used as a local anesthetic. A PEAK PlasmaBlade was used to cut through the existing pacemaker incision and to dissect down to the level of the anterior capsule. The anterior capsule was then opened up using fine scissor dissection and a #15 blade. The pulse generator was removed from the pocket and some adhesions at the junction of the pacemaker leads into the pacemaker pulse generator were freed up using small amounts of PEAK PlasmaBlade cautery to allow enough lead slack to be able to change the pacemaker pulse generator. The atrial lead was removed from the pacemaker pulse generator and attached to a temporary test cable. The ventricular lead was freed up and removed from the original pacemaker pulse generator and then plugged directly into the new pacemaker pulse generator. The atrial lead was then plugged into the new pacemaker pulse generator. I then placed a single 0-Ethibond stitch into the floor of the pacemaker pocket to serve as the tie down for the new pacemaker pulse generator. I then took a Pelikon TYRX antimicrobial envelope (medium size); reference TBCE2888 with Lot #[id number]. It was cut into four pieces, which were placed into the pacemaker pocket floor. The new pacemaker pulse generator was then placed into the existing pacemaker pocket and secured with the previously placed 0-Ethibond suture. The deep layer was closed using individual sutures consisting of 2-0 Vicryl. Additional 3-0 Vicryl sutures were used to help approximate the more superficial layer. The skin was then closed using alissa. The patient tolerated the procedure well without any immediate complications. The pacemaker pulse generator that was removed was a [employer], Model 2210 with serial #[id number]; originally implanted 05/08/2011. The new pacemaker pulse generator implanted was a [employer] Assurity MRI, Model CH8503 with serial #[id number]. The existing chronic right atrial lead was a [employer], Model 1688 with serial #[id number]; originally implanted 05/08/2011. Device based testing of the right atrial lead showed P-waves of 2.9 mV with lead impedance of 510 ohms and capture threshold of 0.75 volts at 0.8 msec. The existing right ventricle lead was a [employer], Model 1688 with serial #[id number]; originally implanted 05/08/2011. Device based testing of the existing right ventricle lead showed absence of R-waves (pacemaker dependent). Lead impedance of 530 ohms and a capture threshold of 1.26 volts at 0.4 msec.
== END 2020-06-01 17:15 | disposition home or self-care (01) ==
LOC: M SDC 13:00
PROVIDERS: ATTEND Internal Medicine Cardiovascular Disease
DX: T82.111A Breakdown (mechanical) of cardiac pulse generator (battery), initial encounter (principal); Z45.010 Encounter for checking and testing of cardiac pacemaker pulse generator [battery]; I44.2 Atrioventricular block, complete; I10 Essential (primary) hypertension; E11.9 Type 2 diabetes mellitus without complications; E78.00 Pure hypercholesterolemia, unspecified; R60.0 Localized edema; E66.9 Obesity, unspecified; I25.10 Atherosclerotic heart disease of native coronary artery without angina pectoris; Z95.1 Presence of aortocoronary bypass graft; Z79.4 Long term (current) use of insulin; Z79.82 Long term (current) use of aspirin; Z79.899 Other long term (current) drug therapy; Z98.61 Coronary angioplasty status; F17.218 Nicotine dependence, cigarettes, with other nicotine-induced disorders; Z88.5 Allergy status to narcotic agent
CPT/HCPCS: 33228; C1785; J0690; J2250; J3010

== ENCOUNTER → 2021-06-07 | Outpatient (REF) | payer MEDICARE, BC ==
[~2021-06-07] MED LIST changes: -DILT180C43 PO; +DILT180C95 PO; +ECOT81TA5 PO; -LISI2.5T2 PO; +LISI2.5T9 PO; -LR 1,000 ML IV ONE; -ceFAZolin SOD 2 GM in IV 1 EA IV ONE
== END ==
LOC: M SFHCWOUN 15:45
PROVIDERS: ATTEND Surgery
DX: M86.18 Other acute osteomyelitis, other site (principal); Z89.512 Acquired absence of left leg below knee

== ENCOUNTER → 2021-07-05 | Outpatient (REF) | payer MEDICARE, BC ==
[2021-07-05 12:49] LABS: CREATININE FOR GFR 1.43 MG/DL (0.70-1.30)
[2021-07-05 15:18] LABS: HEMOGLOBIN A1c 6.5 %
== END ==
LOC: M SFHCWOUN 12:14
PROVIDERS: ATTEND Surgery
DX: T81.30XA Disruption of wound, unspecified, initial encounter (principal); Z79.899 Other long term (current) drug therapy

== ENCOUNTER → 2021-08-03 | Outpatient (CLI) | payer MEDICARE | LOC: M RAD 12:25 | PROVIDERS: ATTEND Surgery | DX: T81.30XA Disruption of wound, unspecified, initial encounter (principal); R09.89 Other specified symptoms and signs involving the circulatory and respiratory systems ==

== ENCOUNTER → 2021-08-15 | Outpatient (REF) ==
[2021-08-16 03:51] LABS: CLOSTRIDIUM DIFFICILE PCR POSITIVE (NEGATIVE)
== END ==
LOC: M LAB REF 08:29
PROVIDERS: ATTEND Nurse Practitioner Family
DX: Z13.89 Encounter for screening for other disorder (principal)

== ENCOUNTER → 2021-10-31 | Outpatient (POV) | payer MEDICARE ==
[~2021-10-31] VITALS: Ht 175.3 cm; Wt 81.8 kg
[~2021-10-31] MED LIST changes: +LEVO1TAB40 PO; -LEVO750T13 PO
[2021-10-31 13:15] VITALS: BP 125/75
== END ==
LOC: M IRPOV 12:58
PROVIDERS: ATTEND Radiology Diagnostic Radiology
DX: T87.89 Other complications of amputation stump (principal); I73.9 Peripheral vascular disease, unspecified; E11.319 Type 2 diabetes mellitus with unspecified diabetic retinopathy without macular edema; E11.51 Type 2 diabetes mellitus with diabetic peripheral angiopathy without gangrene; E78.5 Hyperlipidemia, unspecified; F17.210 Nicotine dependence, cigarettes, uncomplicated; I10 Essential (primary) hypertension; Z79.4 Long term (current) use of insulin; Z79.82 Long term (current) use of aspirin; Z79.899 Other long term (current) drug therapy; Z88.5 Allergy status to narcotic agent; Z89.512 Acquired absence of left leg below knee

== ENCOUNTER → 2021-11-22 | Outpatient (CLI) | payer MEDICARE | LOC: M LABSMTC 10:35 | PROVIDERS: ATTEND Anesthesiology | DX: Z11.52 Encounter for screening for COVID-19 (principal) ==

== ENCOUNTER → 2021-11-27 | Outpatient (CLI) | payer MEDICARE ==
[~2021-11-27] MED LIST changes: +ISOVUE-300 61% 50ML VIAL As Ordered ONE; +LIDOCAINE 1% MDV 20ML VIAL As Ordered ONE; +MIDAZOLAM INJ 2MG/2ML VIAL (J2250 PER 1MG) As Ordered ONE; +NS 1,000 ML IV SCH; +diphenhydrAMINE 50MG/ML VIAL (J1200) As Ordered ONE; +fentaNYL 100 MCG/2 ML INJECTION As Ordered ONE
[2021-11-27 14:30] VITALS: BP 161/87
== END ==
LOC: M IRPRO 06:36
PROVIDERS: ATTEND Radiology Diagnostic Radiology
DX: I73.9 Peripheral vascular disease, unspecified (principal)
CPT/HCPCS: 36246; 75630; 75774; 99152; 99153; C1769; C1887; C1894; J1200; J1644; J2250; J3010; Q9967

== ENCOUNTER → 2021-12-06 | Outpatient (CLI) | payer MEDICARE ==
[~2021-12-06] MED LIST changes: -ISOVUE-300 61% 50ML VIAL As Ordered ONE; -LIDOCAINE 1% MDV 20ML VIAL As Ordered ONE; -MIDAZOLAM INJ 2MG/2ML VIAL (J2250 PER 1MG) As Ordered ONE; -NS 1,000 ML IV SCH; -diphenhydrAMINE 50MG/ML VIAL (J1200) As Ordered ONE; -fentaNYL 100 MCG/2 ML INJECTION As Ordered ONE
== END ==
LOC: M RAD 10:25
PROVIDERS: ATTEND Surgery
DX: R60.0 Localized edema (principal)

== ENCOUNTER 2021-12-27 15:35 | Outpatient (CLI) | payer MEDICARE ==
[~2021-12-27] VITALS: Ht 175.3 cm; Wt 85.4 kg
[2021-12-27 16:00] VITALS: BP 123/74
[2021-12-27] MEDS ORDERED: BEZLOTOXUMAB 850 MG in NS 100 ML IV ONE (16:30)
[2021-12-27 17:37] VITALS: BP 168/97
== END 2021-12-27 17:41 | disposition home or self-care (01) ==
LOC: M INFU 15:35
PROVIDERS: ATTEND Internal Medicine Infectious Disease
DX: A04.71 Enterocolitis due to Clostridium difficile, recurrent (principal); Z88.5 Allergy status to narcotic agent
CPT/HCPCS: 11042; 96365; J0565

== ENCOUNTER → 2022-02-14 | Outpatient (CLI) | payer MEDICARE ==
[~2022-02-14] MED LIST changes: +CLOP75TA2; +DIFI200T; +DILT180C70; -DOXY-350 PO; +DOXY-444 PO; +PROBCAP14 PO; +SEMA1PEN2
== END ==
LOC: M LABSMTC 10:01
PROVIDERS: ATTEND Anesthesiology
DX: Z20.828 Contact with and (suspected) exposure to other viral communicable diseases (principal); Z11.59 Encounter for screening for other viral diseases

== ENCOUNTER 2022-02-19 12:58 | Day surgery (SDC) | payer MEDICARE ==
[~2022-02-19] VITALS: Ht 175.3 cm; Wt 79.0 kg
[~2022-02-19 12:58] MED LIST changes: +FECAL MICROBIOTA TRANSPLANT PREPARATION 35ML BAG XX ONE; +NS 1,000 ML IV ONE
[2022-02-19] MEDS ORDERED: propofoL 200 MG/20 ML VIAL As Ordered ONE (13:44)
[2022-02-19] MEDS ORDERED: LIDOCAINE 2% 100MG/5ML SDV (FOR ANES.) As Ordered ONE (14:27)
[2022-02-19 15:21] VITALS: BP 145/69
== END 2022-02-19 15:44 | disposition home or self-care (01) ==
LOC: M OPP 12:58
PROVIDERS: ATTEND Internal Medicine Gastroenterology
DX: A04.71 Enterocolitis due to Clostridium difficile, recurrent (principal); Z79.02 Long term (current) use of antithrombotics/antiplatelets; Z79.4 Long term (current) use of insulin; Z79.82 Long term (current) use of aspirin; Z79.899 Other long term (current) drug therapy; Z88.5 Allergy status to narcotic agent; E11.9 Type 2 diabetes mellitus without complications; I10 Essential (primary) hypertension; F17.200 Nicotine dependence, unspecified, uncomplicated; Z95.0 Presence of cardiac pacemaker

== ENCOUNTER → 2022-02-26 | Outpatient (REF) | payer MEDICARE ==
[~2022-02-26] MED LIST changes: -FECAL MICROBIOTA TRANSPLANT PREPARATION 35ML BAG XX ONE; -NS 1,000 ML IV ONE
== END ==
LOC: M LAB REF 17:10
PROVIDERS: ATTEND Internal Medicine Gastroenterology
DX: R19.7 Diarrhea, unspecified (principal)